=== PATIENT | male | born 1970 | race Caucasian/White ===

== ENCOUNTER 2024-07-02 13:47 | Outpatient (AMB) | payer OTHER, SELFPAY ==
--- NOTE | 2024-07-02 13:49 | A.SPINEOV_ITS ---
Vital Signs 07/02/24 14:02 Height 5 ft 6 in Weight 138 lb BMI 22.3 Intake Visit Reasons: LBP Intake Note: Ms. Feliz is here today c/o Low back pain. [place] Required: No Allergies dicyclomine [From Bentyl] Allergy (Mild, Verified 07/02/24 14:02) Unknown Physical Exam Vital Signs: BMI result Body Mass Index 22.3 Assessment & Plan Assessment & Plan (1) Back pain: Code(s): M54.9 - Dorsalgia, unspecified Category: Medical Plan Dear Jak, Thank you for referring Mrs Feliz to our office today. She is a 54-year-old female who has been having lower lumbar back pain on and off now for the last few months. She recently fell and fractured her foot and her wrist and has been using a wheeled scooter to get around to keep the weight off her foot. This is aggravating things a little bit. She does recall having an episode of sciatica back in the spring that resolved itself on its own. She did do some yoga expedite that along. She has no radicular symptoms, tingling numbness or weakness currently. Right now she takes gabapentin but other than that is not taking anything specifically for the back. She had an MRI done at [facility] showing some mild disc bulging was sent today to see us for an evaluation. PMH: History of cervical cancer with a hysterectomy, removal of her cervix and bladder neck, GERD fundoplication, tibial eminence repair. Social hx: She does smoke 1 pack per day, no alcohol and marijuana Medications: Gabapentin Allergies: [place] Physical exam: She is awake alert oriented, no acute distress, she has a boot on her left foot, a brace on her right wrist. She does have some back pain generated with lying flat and doing [employer] testing maneuvers. Motor examination limited by the left foot boot. Imaging review: Lumbar MRI done at [facility] shows normal alignment, some very mild disc bulging at L5 SI 1 but otherwise normal looking MRI. Impression: 54-year-old female with back pain for 2-3 months, has basically what looks like normal imaging on her lumbar MRI. The radiology report suggests there some disc bulging and that is true but overall the quality of her spinal column in terms with the vertebrae and disc quality is excellent. I think what she is dealing with some kind of musculoskeletal issue that should resolve its elf when she has the opportunity in freedom to do some formal physical therapy and muscular training. She does also sit at a computer a lot for work which we know can aggravate back discomfort. When she is healed up from the foot fracture in the wrist fracture I told her would be worthwhile finding a dedicated physical therapist who can work with her and try to iron out some of this. She certainly needs no surgery. Thank you for allowing us to care for your patient. The total time spent with this visit with this patient was 45 minutes reviewing history, physical exam, lumbar imaging review, and implementation of treatment plan or further diagnostic testing Bonilla Ferrer MD,PhD [facility] Coding Level of Care Code New Pt Level 4 (80542) Diagnoses Back pain M54.9
[2024-07-02 14:02] VITALS: BMI 22.3
== END 2024-07-02 14:41 | disposition home or self-care (01) ==
PROVIDERS: PCP Physician Assistant; Referring Provider Physician Assistant; Visit Provider Physician Assistant
DX: M54.9 Dorsalgia, unspecified (principal)
CPT/HCPCS: 99204

== ENCOUNTER → 2024-07-02 13:47 | Outpatient (BNVA) | payer OTHER, SELFPAY | PROVIDERS: PCP Physician Assistant; Visit Provider Physician Assistant ==